=== PATIENT | female | born 1985 ===

== ENCOUNTER 2024-08-05 14:40 | Outpatient (CLI) | payer BC, SELFPAY ==
[2024-08-05 14:58] LABS: Hematocrit 39.4 % (37.0-47.0); Hemoglobin 12.8 g/dL (12.0-15.0); Mean Corpuscular HGB Conc 32.5 g/dl (32-36); Mean Corpuscular Hemoglobin 25.7 pg (26-34); Mean Platelet Volume 10.9 fl (7.4-10.4); Platelet Count Result 227 k/mm3 (150-375); Red Blood Count 4.99 M/mm3 (4.2-5.4); Red Cell Distribution Width 14.3 % (11.5-14.5); White Blood Count 3.4 K/mm3 (4.5-10.0)
[2024-08-05 15:33] LABS: Erythrocyte Sedimentation Rate 5 mm/hr (0-20)
[2024-08-05 16:08] LABS: Iron 120 ug/dL (37-170)
[2024-08-05 16:13] LABS: Alanine Aminotransferase 23 U/L (6-35); Albumin Level 4.3 g/dL (3.5-5.1); Alkaline Phosphatase 69 U/L (38-126); Anion Gap 8 mmol/L (4-12); Aspartate Amino Transferase 32 U/L (14-36); Bilirubin,Total 1.2 mg/dL (0.2-1.3); Blood Urea Nitrogen 13 mg/dL (7-17); CRP < 0.5 mg/dL (<1.0); Calcium 9.1 mg/dL (8.4-10.2); Carbon Dioxide 27 mmol/L (22-30); Chloride 100 mmol/L (98-107); Estimated Glomerular Filt Rate > 60; Glucose 92 mg/dL (65-110); Potassium 3.9 mmol/L (3.4-5.0); Sodium 135 mmol/L (137-145)
[2024-08-05 16:17] LABS: Percent Iron Saturation 40 % (20-50)
[2024-08-05 16:40] LABS: Thyroid Stimulating Hormone Reflex 0.974 uIU/mL (0.465-4.68)
[2024-08-05 17:19] LABS: Folic Acid 11.3 ng/mL (2.76->20); Vitamin B12 > 1000.0 pg/mL (239-931)
[2024-08-10 23:04] LABS: Immunoglobulin A 215 mg/dL (47-310); TTG IGA AB <1.0 U/mL
== END 2024-08-05 14:41 | disposition home or self-care (01) ==
PROVIDERS: Visit Provider Nurse Practitioner
DX: K51.90 Ulcerative colitis, unspecified, without complications (principal); R10.32 Left lower quadrant pain; K92.1 Melena; R19.8 Other specified symptoms and signs involving the digestive system and abdomen; K59.00 Constipation, unspecified
CPT/HCPCS: 36415; 80053; 82607; 82652; 82728; 82746; 82784; 83516; 83540; 83550; 84443; 85027; 85652; 86140

== ENCOUNTER 2024-08-18 14:20 | Outpatient (CLI) | payer BC, SELFPAY | END 2024-08-18 14:21 | disposition home or self-care (01) | LOC: ANHLAB 14:20 | PROVIDERS: Visit Provider Nurse Practitioner | DX: K51.90 Ulcerative colitis, unspecified, without complications (principal); R10.32 Left lower quadrant pain; K59.00 Constipation, unspecified; R19.8 Other specified symptoms and signs involving the digestive system and abdomen; K92.1 Melena | CPT/HCPCS: 83993 ==

== ENCOUNTER 2024-08-25 14:48 | Outpatient (CLI) | payer BC, SELFPAY ==
--- NOTE | ~2024-08-25 | CT_ITS ---
CLINICAL INDICATION: Ulcerative colitis COMPARISON: None. TECHNIQUE: Multiple contiguous axial images of the abdomen and pelvis were performed following the ad ministration of with 100 mL Omnipaque-350 intravenous contrast The dose-length product (DLP) was 201.79 mGy-cm. Automated exposure control and iterative reconstruction technique were employed. FINDINGS/OBSERVATIONS: Visualized lower thorax: The bilateral lung bases are clear. The heart is of normal size, without pericardial effusion. Small hiatal hernia is present. Liver: The liver demonstrates homogeneous enhancement and is not enlarged. Gallbladder and biliary system: The gallbladder is distended, and otherwise unremarkable. Pancreas: The pancreas enhances homogeneously without ductal dilatation. Spleen: The spleen enhances homogeneously and is not enlarged. Kidneys: The bilateral kidneys enhance symmetrically without hydronephrosis or renal calculi. Adrenal glands: Unremarkable. Gastrointestinal tract: Significant fecal stasis within the colon. Appendix: The appendix is of increased caliber (axial series, images 80 through 102) without surrounding inflam matory change. Vasculature: Markedly enlarged left renal vein is incidentally noted. 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 Lymph nodes: No pathologically enlarged or morphologically suspicious lymph nodes within the retroperitoneum or at the root of the mesentery. Pelvic structures: The bladder is decompressed, limiting its evaluation. The uterus is anteverted and anteflexed. Body wall and musculoskeletal: Small fat-containing supraumbilical hernia. No significant degenerative disease within the lower thoracic or lumbosacral spine. IMPRESSION: Significant fecal stasis within the colon. No surrounding inflammatory change or mural thickening within the colon or small bowel. Prominence of the caliber of the appendix without surrounding inflammatory change. Aberrant left renal artery origin, as detailed above. Reviewed, dictated and finalized at location A. IMPRESSION: Significant fecal stasis within the colon. No surrounding inflammatory change or mural thickening within the colon or smal l bowel. Prominence of the caliber of the appendix without surrounding inflammatory lewis ge. Aberrant left renal artery origin, as detailed above.
== END 2024-08-25 14:49 | disposition home or self-care (01) ==
PROVIDERS: Visit Provider Nurse Practitioner
DX: K56.41 Fecal impaction (principal); K38.0 Hyperplasia of appendix; Q27.2 Other congenital malformations of renal artery; K51.90 Ulcerative colitis, unspecified, without complications
CPT/HCPCS: 74177; Q9967

== ENCOUNTER 2025-04-30 12:08 | Emergency (ER) | payer BC, SELFPAY ==
[2025-04-30 12:24] VITALS: BP 108/87; PULSE 85; RESP 16; TEMP 36.4; O2SAT 100
--- NOTE | 2025-04-30 12:51 | ED_ITS ---
HPI - General Adult General Chief complaint: Nausea/Vomiting/Diarrhea Stated complaint: Pain under breasts/ 5m Time Seen by Provider: 04/30/25 12:51 Source: patient, RN notes reviewed and old records reviewed Mode of arrival: ambulatory Limitations: no limitations History of Present Illness HPI narrative: 39-year-old female who is 5 months reports epigastric burning since she vomited 4 days ago. States that she feels a pressure, burning up into her throat. States that she called her OBGYN Dr. Joshi and was told to take Tylenol. States that since she did vomit she is having the burning, discomfort with eating and drinking. Onset (ago): day(s) (4) Treatments prior to arrival: other (Tylenol) Related Data Home Medications ?Medication ?Instructions ?Recorded ?Confirmed ?Last Taken ?Type labetalol 200 mg tablet mg 04/30/25 Unknown History Allergies Allergy/AdvReac Type Severity Reaction Status Date / Time No Known Allergies Allergy Verified 09/10/24 14:24 Review of Systems Review of Systems: All systems reviewed & are unremarkable except as noted in HPI and below Constitutional: Constitutional: Reports no additional constitutional complaints ENT: Reports system reviewed and no additional complaints, except as documented Cardiovascular: Cardiovascular: Reports no additional cardiovascular complaints, Denies chest pain and Denies dyspnea Respiratory: Respiratory: Reports no additional respiratory complaints, Denies chest congestion, Denies cough and Denies dyspnea Gastrointestinal: Gastrointestinal: Reports as per HPI Musculoskeletal: Musculoskeletal: Reports no additional musculoskeletal complaints Integumentary/Breasts: Skin/Breast: Reports system reviewed and no additional complaints, except as docu PMFSH Social History Social History Smoking status: Unknown if ever smoked Comments At the time of my signature, I reviewed and agree with the nursing past medical, surgical, social, and family history. There is no relevant family history pertinent to the patient complaint. Exam Const: General: cooperative, healthy appearing, comfortable, no acute distress, well developed, alert and well nourished Nutritional Appearance: well nourished Orientation/consciousness: patient oriented x3 Limitations: no limitations HENMT: Head: normal to inspection Mouth: Yes Normal oral and palatal mucosa present, Yes lip normal, Yes tongue normal and Yes moist mucous membranes Throat: posterior oropharynx normal, tonsils normal, uvula midline and no uvular edema Eyes: General: appearance normal, both eyes and all related structures Alignment and Position: alignment normal Neck: Neck: normal visual inspection, full ROM, no lymphadenopathy and no meningeal signs Chest: Chest palpation & inspection: normal inspection of the chest Resp: Effort & Inspection: normal respiratory effort and able to speak in complete sentences Auscultation: clear to auscultation bilaterally, no crackles, no rales, no rhonchi and no wheezes Cardio: Rate: regular rate GI: GI Palp: No abdominal tenderness Other: 5 months Skin: General skin exam: normal color and no rashes or lesions noted Neuro: General: patient oriented x3, gait normal, moves all extremities and no meningeal signs Cognition (Neuro): normal cognition Speech: normal speech Gait exam (Neuro): Normal gait present Extrem: General: normal to inspection, full ROM, capillary refill normal and normal gait Psych: Appearance: grossly normal and well kempt Mental Status: mental status grossly normal Speech and movement: Normal speech and movement present and Clear speech present Affect: normal affect Attitude: cooperative Course Course Level of Care: Express Care Visit Vital Signs Vital signs: Vital Signs Temperature 97.5 F L 04/30/25 12:24 Pulse Rate 85 04/30/25 12:24 Respiratory Rate 16 04/30/25 12:24 Blood Pressure 108/87 04/30/25 12:24 Pulse Oximetry 100 04/30/25 12:24 Temperature 97.5 F L 04/30/25 12:24 Pulse Rate 85 04/30/25 12:24 Respiratory Rate 16 04/30/25 12:24 Blood Pressure 108/87 04/30/25 12:24 Pulse Oximetry 100 04/30/25 12:24 reviewed MDM MDM Narrative Medical decision making narrative: Patient sitting in exam room. Patient is nontoxic, vitals stable. Patient states 4 days ago she vomited has had burning, belching, discomfort with eating and drinking. States that she did talk to her mercantile agent who recommended taking Tylenol. Has not taken anything else for her symptoms. Reports that she does have an appointment with OBGYN on the . Discussed with patient and her that if symptoms persist she probably needs more of a workup and that she should proceed to the labor and delivery or the ER. Discharge instructions reviewed with patient, as well as provided in writing per nursing staff. The instructions also include specific and strict return/GO TO THE ER as well as f/u information. All questions have been answered, and the patient deny any further questions with discharge and discharge plan. Some parts of this dictation were generated by voice recognition software and may contain typographical and/or grammatical inaccuracies. Differential Diagnosis Differential Diagnosis: Differential diagnostic considerations for acute abdominal pain?include surgical abdominal etiology, ischemic bowel, inflammatory bowel disease, gastritis, PUD, gastroenteritis, cardiac etiology, appendicitis, diverticulitis, bowel obstruction, kidney stone, pyelonephritis, abdominal aortic aneurysm, pancreatitis, constipation, endometriosis. Discharge Plan Discharge Clinical Impression: Acute epigastric pain Acid reflux Qualifiers: Esophagitis presence: esophagitis presence not specified Qualified Code(s): K21.9 - Gastro-esophageal reflux disease without esophagitis Patient Disposition: Home Condition: Stable Instructions: GERD (Gastroesophageal Reflux Disease) (DC) Additional Instructions: Keep your diet very simple. Nothing fried, greasy, spicy or highly processed. If symptoms persist or get worse please go to Labor and delivery Approved Medications for Patients Complaint Medications Cold and Flu Symptoms --Tylenol (regular or extra Strength) Fever (call if over 101?)--Tylenol (regular or extra Strength) Nasal Drainage/Head Congestion--Chlor-Trimeton, Sudafed, Tavist,Tylenol Sinus Cough--Robitussin, Delsym, Mucinex Sore Throat--Chloraseptic, Cepacol lozenges Allergy Symptoms--Bendryl, Zyrtec, Zyrtec D, Claritin, Claritin D Nausea--Emetrol, Vitamin B6 Tablets, Sheryl, Sheryl Tea, Preggie Pops, B- Suckers Constipation--Milk of Magnesia, Metamucil, Fiberall, Konsyl, Colace (Docusate Sodium Diarrhea--Imodium, Kaopectate, Follow BRAT diet: bananas, rice, applesauce, tea/toast Heartburn--Maalox, Mylanta, TUMS, Pepcid Hemorrhoids--Tucks Pads, Anusol, Preparation H, warm sitz baths Patient Language: [place] Prescriptions: No Action labetalol 200 mg tablet mesalamine [Lialda] 1.2 gram tablet,delayed release (DR/EC) 4.8 g PO DAILY Qty: 120 11RF Follow-up/Referrals: UNKNOWN,DOCTOR [Primary Care Provider] Time of Disposition: 13:06
== END 2025-04-30 13:10 | disposition home or self-care (01) ==
PROVIDERS: Emergency Provider Nurse Practitioner
DX: O99.619 Diseases of the digestive system complicating pregnancy, unspecified trimester (principal); K21.9 Gastro-esophageal reflux disease without esophagitis
CPT/HCPCS: 99211; G0463